=== PATIENT | male | born 1985 | race African-American/Black ===

== ENCOUNTER 2021-04-19 13:22 | Emergency (ER) | payer OTHER ==
[2021-04-19] MEDS ORDERED: IBUPROFEN800 MG PO (16:54)
== END 2021-04-19 17:15 | disposition home or self-care (01) ==
LOC: FER 13:22
DX: S00.03XA Contusion of scalp, initial encounter (principal); S09.90XA Unspecified injury of head, initial encounter; W22.09XA Striking against other stationary object, initial encounter; Y92.89 Other specified places as the place of occurrence of the external cause; Y99.0 Civilian activity done for income or pay
CPT/HCPCS: 70450